=== PATIENT | female | born 1995 | race Caucasian/White ===

== ENCOUNTER 2018-12-13 02:46 | Inpatient (IN) | payer OTHER ==
[2018-12-13] MEDS ORDERED: Nalbuphine 20 MG/ML 1 ML Syringe IVPUSH PRN (03:39)
[2018-12-13] MEDS ORDERED: Sodium Chloride 0.9% 10 ML Syringe FLUSH PRN (03:39)
[2018-12-13] MEDS ORDERED: Oxytocin/Lactated Ringers 10 UNIT/1,000 ML BAG IV SCH ×2 (03:45)
--- NOTE | 2018-12-13 06:49 | PCM.LDHP ---
L&D History of Present Illness - General Date of Service: 12/13/18 Admit Problem/Dx: Patient Status Order with Admit Dx/Problem 12/13/18 03:39 Patient Status [ADT] Routine Admission Diagnosis/Problem Admission Diagnosis/Problem Source of Information: Patient History Limitations: Reports: No Limitations - History of Present Illness Introduction:: Patient is a 23 y/o at 40 4/7 wks who presents in labor. Contractions started late last night. Progressively worse and presented ot hospital about 0300 this AM. No other specific concerns. 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 Para: 0 LMP (Approximate): - Past Surgical History HEENT Surgical History: Reports: Oral Surgery (wisdom tooth extraction) Social & Family History - Family History Family Medical History: Noncontributory - Tobacco Use Smoking Status *Q: Never Smoker Second Hand Smoke Exposure: No - Alcohol Use Alcohol Use History: No - Recreational Drug Use Recreational Drug Use: No H&P Review of Systems - Review of Systems: Review Of Systems: See Below General: Reports: No Symptoms Pulmonary: Reports: No Symptoms Cardiovascular: Reports: No Symptoms Gastrointestinal: Reports: No Symptoms Genitourinary: Reports: No Symptoms Musculoskeletal: Reports: No Symptoms Psychiatric: Reports: No Symptoms L&D Exam - Exam Exam: See Below - Vital Signs Vital Signs: Last Vital Signs Temp 36.1 C 12/13/18 03:01 Pulse 66 12/13/18 03:01 Resp 18 12/13/18 03:01 BP 134/80 12/13/18 03:01 Pulse Ox 98 12/13/18 03:01 Weight: 77.519 kg - OB Specific Contraction Intensity: Moderate to Strong Movement: Active Heart Tones: Present Heart Tones per Min: 135 Heart Rate (FHR) Variability: Moderate (6-25 bmp) Presentation: Vertex - Cruz Score Cruz Score Cervix Position: Midposition Cruz Score Consistency: Soft Cruz Score Effacement: >80% Cruz Score Dilation: 3-4 cm Cruz Score Infant's Station: -1 ,0 Cruz Score Total: 10 - Exam General: Alert, Oriented, Cooperative Lungs: Clear to Auscultation, Normal Respiratory Effort Cardiovascular: Regular Rate, Regular Rhythm GI/Abdominal Exam: Soft, Non-Tender Genitourinary: Normal external exam Back Exam: Normal Inspection Extremities: Normal Inspection Skin: Warm, Dry, Intact - Patient Data Lab Results Last 24 hrs: Laboratory Results - last 24 hr 12/13/18 Range/Units 05:45 WBC 15.31 H (3.98-10.04) K/mm3 RBC 4.63 (3.98-5.22) M/mm3 Hgb 14.4 (11.2-15.7) gm/L Hct 41.6 (34.1-44.9) % MCV 89.8 (79.4-94.8) fl MCH 31.1 (25.6-32.2) pg MCHC 34.6 (32.2-35.5) g/dl RDW Std Deviation 40.7 (36.4-46.3) fL Plt Count 242 (182-369) K/mm3 MPV 10.6 (9.4-12.3) fl Neut % (Auto) 83.7 H (34.0-71.1) % Lymph % (Auto) 10.3 L (19.3-51.7) % [place] % (Auto) 5.2 (4.7-12.5) % Eos % (Auto) 0.4 L (0.7-5.8) Baso % (Auto) 0.1 (0.1-1.2) % Neut # (Auto) 12.81 H (1.56-6.13) K/mm3 Lymph # (Auto) 1.57 (1.18-3.74) K/mm3 [place] # (Auto) 0.80 H (0.24-0.36) K/mm3 Eos # (Auto) 0.06 (0.04-0.36) K/mm3 Baso # (Auto) 0.02 (0.01-0.08) K/mm3 Result Diagrams: 12/13/18 05:45 - Problem List (1) 40 weeks gestation of SNOMED Code(s): 72180096 ICD Code: Z3A.40 - 40 WEEKS GESTATION OF Status: Acute Current Visit: Yes Problem List Initiated/Reviewed/Updated: Yes Orders Last 24hrs: Active Orders 24 hr Category Date Time Status Patient Status [ADT] Routine ADT 12/13/18 03:39 Active Activity as Tolerated [RC] PFP Care 12/13/18 03:39 Active Communication Order [RC] ASDIRECTED Care 12/13/18 03:39 Active Non Stress Test [RC] PER UNIT ROUTINE Care 12/13/18 03:39 Active Notify Provider [RC] PFP Care 12/13/18 03:39 Active Notify Provider [RC] PRN Care 12/13/18 03:39 Active Peripheral IV Care [RC] Q2HR Care 12/13/18 03:40 Active Vital Signs [RC] 03,09,15,21 Care 12/13/18 03:39 Active Regular Diet [DIET] Diet 12/13/18 Breakfast Active RAPID PLASMA REAGIN,RPR [CHEM] Routine Lab 12/13/18 05:45 Received Lactated Ringers [Ringers, Lactated] 1,000 ml Med 12/13/18 03:45 Active IV ASDIRECTED Nalbuphine [Nubain] Med 12/13/18 03:39 Active 10 mg IVPUSH Q2H PRN Oxytocin/Lactated Ringers [Pitocin in LR 10 Units/1,000 Med 12/13/18 03:45 Active ML] 10 unit in 1,000 ml IV .CONTINUOUS Oxytocin/Lactated Ringers [Pitocin in LR 10 Units/1,000 Med 12/13/18 03:45 Active ML] 10 unit in 1,000 ml IV TITRATE Sodium Chloride 0.9% [Saline Flush] Med 12/13/18 03:39 Active 10 ml FLUSH ASDIRECTED PRN Electronic Heart Tones Ext w TOCO [WOMSER] Oth 12/13/18 03:39 Ordered Routine Electronic Heart Tones Internal [WOMSER] Per Unit Oth 12/13/18 03:39 Ordered Routine Peripheral IV Insertion Adult [OM.PC] Routine Oth 12/13/18 03:39 Ordered Resuscitation Status Routine Resus Stat 12/13/18 03:39 Ordered Medication Orders Lactated Ringer's (Ringers, Lactated) 1,000 mls @ 100 mls/hr IV ASDIRECTED LEIDY Oxytocin/Lactated Ringer's (Pitocin In Lr 10 Units/1,000 Ml) 10 unit in 1,000 mls @ 12 mls/hr IV TITRATE LEIDY; Protocol Oxytocin/Lactated Ringer's (Pitocin In Lr 10 Units/1,000 Ml) 10 unit in 1,000 mls @ 500 mls/hr IV .CONTINUOUS LEIDY Nalbuphine HCl (Nubain) 10 mg IVPUSH Q2H PRN PRN Reason: pain Sodium Chloride (Saline Flush) 10 ml FLUSH ASDIRECTED PRN PRN Reason: Keep Vein Open Assessment/Plan Comment:: 23 y/o at 40 4/7 wks who presents in labor * Labs * GBS negative, no need for antibiotics * pain management per patient preference * Anticipate
[2018-12-13] MEDS: Lactated Ringers 1,000 ML IV SCH ×4 (08:55→13:44)
--- NOTE | 2018-12-13 09:03 | PCM.PREANE ---
Preanesthetic Assessment - Procedure Proposed Procedure: YAEL - Anesthesia/Transfusion/Family Hx Anesthesia History: Prior Anesthesia Without Reaction (wisdom teeth extraction with no problems) Family History of Anesthesia Reaction: No Transfusion History: No Prior Transfusion(s) - Review of Systems General: No Symptoms Pulmonary: No Symptoms Cardiovascular: No Symptoms Gastrointestinal: No Symptoms Neurological: No Symptoms Other: Reports: None - Physical Assessment NPO Status Date: 12/13/18 NPO Status Time: 07:00 O2 Sat by Pulse Oximetry: 98 Respiratory Rate: 18 Vital Signs: Last Vital Signs Temp 36.1 C 12/13/18 03:01 Pulse 66 12/13/18 03:01 Resp 18 12/13/18 03:01 BP 134/80 12/13/18 03:01 Pulse Ox 98 12/13/18 03:01 Height: 1.65 m Weight: 77.519 kg ASA Class: 2 Mental Status: Alert & Oriented x3 Airway Class: Mallampati = 1 Dentition: Reports: Normal Dentition Thyro-Mental Finger Breadths: 3 Mouth Opening Finger Breadths: 3 ROM/Head Extension: Full Lungs: Clear to Auscultation, Normal Respiratory Effort Cardiovascular: Regular Rate, Regular Rhythm - Lab Values: Laboratory Last Values WBC 15.31 K/mm3 (3.98-10.04) H 12/13/18 05:45 RBC 4.63 M/mm3 (3.98-5.22) 12/13/18 05:45 Hgb 14.4 gm/L (11.2-15.7) 12/13/18 05:45 Hct 41.6 % (34.1-44.9) 12/13/18 05:45 MCV 89.8 fl (79.4-94.8) 12/13/18 05:45 MCH 31.1 pg (25.6-32.2) 12/13/18 05:45 MCHC 34.6 g/dl (32.2-35.5) 12/13/18 05:45 RDW Std Deviation 40.7 fL (36.4-46.3) 12/13/18 05:45 Plt Count 242 K/mm3 (182-369) 12/13/18 05:45 MPV 10.6 fl (9.4-12.3) 12/13/18 05:45 Neut % (Auto) 83.7 % (34.0-71.1) H 12/13/18 05:45 Lymph % (Auto) 10.3 % (19.3-51.7) L 12/13/18 05:45 [place] % (Auto) 5.2 % (4.7-12.5) 12/13/18 05:45 Eos % (Auto) 0.4 (0.7-5.8) L 12/13/18 05:45 Baso % (Auto) 0.1 % (0.1-1.2) 12/13/18 05:45 Neut # (Auto) 12.81 K/mm3 (1.56-6.13) H 12/13/18 05:45 Lymph # (Auto) 1.57 K/mm3 (1.18-3.74) 12/13/18 05:45 [place] # (Auto) 0.80 K/mm3 (0.24-0.36) H 12/13/18 05:45 Eos # (Auto) 0.06 K/mm3 (0.04-0.36) 12/13/18 05:45 Baso # (Auto) 0.02 K/mm3 (0.01-0.08) 12/13/18 05:45 - Allergies Allergies/Adverse Reactions: Allergies Allergy/AdvReac Type Severity Reaction Status Date / Time Sulfa (Sulfonamide Allergy Other Verified 12/13/18 03:39 Antibiotics) - Blood Blood Available: No Product(s) Available: None - Anesthesia Plan Pre-Op Medication Ordered: None - Acknowledgements Anesthesia Type Planned: Epidural Pt an Appropriate Candidate for the Planned Anesthesia: Yes Alternatives and Risks of Anesthesia Discussed w Pt/Guardian: Yes Pt/Guardian Understands and Agrees with Anesthesia Plan: Yes 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 Smoking Status *Q: Never Smoker Second Hand Smoke Exposure: No Recreational Drug Use History: No - CURRENT (IN HOUSE) MEDS Current Meds: Current Medications Lactated Ringer's (Ringers, Lactated) 1,000 mls @ 100 mls/hr IV ASDIRECTED LEIDY Last Admin: 12/13/18 08:55 Dose: 100 mls/hr Oxytocin/Lactated Ringer's (Pitocin In Lr 10 Units/1,000 Ml) 10 unit in 1,000 mls @ 12 mls/hr IV TITRATE LEIDY; Protocol Oxytocin/Lactated Ringer's (Pitocin In Lr 10 Units/1,000 Ml) 10 unit in 1,000 mls @ 500 mls/hr IV .CONTINUOUS LEIDY Nalbuphine HCl (Nubain) 10 mg IVPUSH Q2H PRN PRN Reason: pain Sodium Chloride (Saline Flush) 10 ml FLUSH ASDIRECTED PRN PRN Reason: Keep Vein Open
[2018-12-13] MEDS ORDERED: ePHEDrine 50 MG/ML SDV IVPUSH PRN (09:04)
[2018-12-13] MEDS ORDERED: fentaNYL 100 MCG/2 ML SDV EPIDUR PRN (09:04)
[2018-12-13] MEDS ORDERED: diphenhydrAMINE 50 MG/ML SDV IVPUSH PRN (09:04)
[2018-12-13] MEDS ORDERED: Ondansetron 4 MG/2 ML SDV IVPUSH PRN (09:04)
[2018-12-13] MEDS ORDERED: fentaNYL/Bupivacaine-NS 2 MCG/ML-0.125%/PF 100 ML Bag EP SCH (09:15)
--- NOTE | 2018-12-13 13:08 | PCM.PNLD ---
Labor Progress Note - VS & Meds Vital Signs: Last Vital Signs Temp 36.1 C 12/13/18 03:01 Pulse 66 12/13/18 03:01 Resp 18 12/13/18 09:02 BP 134/80 12/13/18 03:01 Pulse Ox 98 12/13/18 09:02 Active Medications: Current Medications Diphenhydramine HCl (Benadryl) 25 mg IVPUSH Q6H PRN PRN Reason: Pruritis Ephedrine Sulfate (Ephedrine Sulfate) 5 mg IVPUSH ASDIRECTED PRN PRN Reason: Hypotension Fentanyl (Sublimaze) 100 mcg EPIDUR Q3H PRN PRN Reason: Pain Last Admin: 12/13/18 09:42 Dose: 100 mcg Fentanyl/Bupivacaine HCl (Jjcfbbrk-Epiab-Mi 2 Mcg/Ml-0.125%) 100 ml EP ASDIRECTED LEIDY Last Admin: 12/13/18 09:41 Dose: 100 ml Lactated Ringer's (Ringers, Lactated) 1,000 mls @ 100 mls/hr IV ASDIRECTED LEIDY Last Admin: 12/13/18 10:05 Dose: 100 mls/hr Oxytocin/Lactated Ringer's (Pitocin In Lr 10 Units/1,000 Ml) 10 unit in 1,000 mls @ 12 mls/hr IV TITRATE LEIDY; Protocol Oxytocin/Lactated Ringer's (Pitocin In Lr 10 Units/1,000 Ml) 10 unit in 1,000 mls @ 500 mls/hr IV .CONTINUOUS LEIDY Nalbuphine HCl (Nubain) 10 mg IVPUSH Q2H PRN PRN Reason: pain Ondansetron HCl (Zofran) 4 mg IVPUSH ONETIME PRN PRN Reason: Nausea/Vomiting Sodium Chloride (Saline Flush) 10 ml FLUSH ASDIRECTED PRN PRN Reason: Keep Vein Open - Uterine Contractions Uterine Monitoring Mode: External [place] Contraction Intensity: Moderate to Strong Uterine Resting Tone: Soft - Monitoring Monitor Mode: External Ultrasound Heart Rate (FHR) Baseline: 140 Heart Rate (FHR) Variability: Moderate (6-25 bmp) Accelerations: Present, 15x15 Decelerations: None Strip Review: Category I - Vaginal Exam Dilation (cm): 6 Effacement (Percent): 100 Station: -1 Cervical Position: Anterior - Labor Progress (Free Text) Labor Progress: Doing well. Comfortable with epidural in place. AROM performed with clear fluid. Continue present management
--- NOTE | 2018-12-13 18:02 | PCM.DEL ---
L & D Note - General Info Date of Service: 12/13/18 - Delivery Note Labor: Spontaneous Delivery Outcome: Livebirth Delivery Method: Spontaneous Vaginal Delivery-Single Delivery Mode: Spontaneous Presentation: Right Occiput Anterior (LUIGI) Nuchal Cord: None Anesthesia Type: Epidural Amniotic Fluid Description: Clear Episiotomy Type: None Laceration: 2nd Degree, Perineal Suture type: Vicryl Suture size: 2-0 Placenta: Intact, Spontaneous Cord: 3 Vessels Estimated Blood Loss: 200 [place]: Bulb Syringe, Stimulated, Warmed, [place] Used, Warmer Used Delivery Comments (Free Text/Narrative):: Patient found to be complete and began pushing. With maternal pushing effort head delivered from an LUIGI presentation. No nuchal cord present. With gentle downward traction the shoulders and body delivered. Infant placed on maternal abdomen. Cord clamped and cut. Cord blood obtained. Placenta allowed time to separate and expelled intact. inspection of the perineum showed a 2nd degree laceration repaired with a 2-0 vicryl in the typical fashion - General Info Date of Service: 12/14/18 - Patient Data Vitals - Most Recent: Last Vital Signs Temp 36.1 C 12/13/18 03:01 Pulse 66 12/13/18 03:01 Resp 18 12/13/18 09:02 BP 134/80 12/13/18 03:01 Pulse Ox 98 12/13/18 09:02 Weight - Most Recent: 77.519 kg - Problem List & Annotations (1) 40 weeks gestation of SNOMED Code(s): 00098405 Code(s): Z3A.40 - 40 WEEKS GESTATION OF Status: Acute Current Visit: Yes (2) Vaginal delivery SNOMED Code(s): 597842729 Code(s): O80 - ENCOUNTER FOR FULL-TERM UNCOMPLICATED DELIVERY Status: Acute Current Visit: Yes - Problem List Review Problem List Initiated/Reviewed/Updated: Yes - My Orders Last 24 Hours: My Active Orders 12/13/18 03:39 Patient Status [ADT] Routine Activity as Tolerated [RC] PFP Communication Order [RC] ASDIRECTED Notify Provider [RC] PFP Notify Provider [RC] PRN Vital Signs [RC] 03,09,15,21 Nalbuphine [Nubain] 10 mg IVPUSH Q2H PRN Sodium Chloride 0.9% [Saline Flush] 10 ml FLUSH ASDIRECTED PRN Electronic Heart Tones Ext w TOCO [WOMSER] Routine Electronic Heart Tones Internal [WOMSER] Per Unit Routine Peripheral IV Insertion Adult [OM.PC] Routine Resuscitation Status Routine 12/13/18 03:40 Peripheral IV Care [RC] .PRN 12/13/18 03:45 Lactated Ringers [Ringers, Lactated] 1,000 ml IV ASDIRECTED Oxytocin/Lactated Ringers [Pitocin in LR 10 Units/1,000 ML] 10 unit in 1,000 ml IV .CONTINUOUS Oxytocin/Lactated Ringers [Pitocin in LR 10 Units/1,000 ML] 10 unit in 1,000 ml IV TITRATE 12/13/18 05:45 RAPID PLASMA REAGIN,RPR [CHEM] Routine 12/13/18 17:59 Patient Status Manage Transfer [TRANSFER] Routine 12/13/18 Breakfast Regular Diet [DIET] - Assessment Assessment:: 23 y/o G1 now P1001 PPD#0 from at 40 4/7 wks - Plan Plan:: * Routine cares * Encourage breast feeding * Discharge home in 2 days
[2018-12-13] MEDS ORDERED: Docusate Sodium 100 MG Cap PO PRN (18:10)
[2018-12-13] MEDS ORDERED: Witch Hazel Medicated Pads 100/Jar TOP PRN (18:10)
[2018-12-13] MEDS ORDERED: Lanolin 100% Cream 7 GM Tube TOP PRN (18:10)
[2018-12-13] MEDS ORDERED: Benzocaine/Menthol 20%-0.5% Spray 56 GM Canister TOP PRN (18:10)
[2018-12-13] MEDS ORDERED: Acetaminophen 325 MG Tab PO PRN (18:10)
[2018-12-13] MEDS: Ibuprofen 600 MG Tab PO PRN (19:29)
[2018-12-13] MEDS ORDERED: Bupivacaine 0.25% 10 ML SDV ONE (22:00)
[2018-12-13] MEDS ORDERED: Lidocaine 1.5% with EPINEPHrine 1:200,000 5 ML Amp ONE (22:00)
--- NOTE | 2018-12-14 06:48 | PCM.PNPP ---
- General Info Date of Service: 12/14/18 Functional Status: Reports: Pain Controlled, Tolerating Diet, Ambulating, Urinating - Review of Systems General: Reports: No Symptoms Pulmonary: Reports: No Symptoms Cardiovascular: Reports: No Symptoms Gastrointestinal: Reports: No Symptoms Genitourinary: Reports: No Symptoms Musculoskeletal: Reports: No Symptoms Neurological: Reports: No Symptoms - Patient Data Vital Signs - Most Recent: Last Vital Signs Temp 36.8 C 12/14/18 03:14 Pulse 60 12/14/18 03:14 Resp 17 12/14/18 03:14 BP 117/79 12/14/18 03:14 Pulse Ox 98 12/14/18 03:14 Weight - Most Recent: 77.519 kg I&O - Last 24 Hours: Intake & Output 12/13/18 12/13/18 12/14/18 14:59 22:59 06:59 Intake Total 3000 5975 Output Total 1000 Balance 2000 5975 Lab Results - Last 24 Hours: Laboratory Results - last 24 hr 12/13/18 Range/Units 05:45 RPR Non-reactive (NONREACTIVE) Med Orders - Current: Current Medications Acetaminophen (Tylenol) 650 mg PO Q4H PRN PRN Reason: mild pain or fever Benzocaine/Menthol (Dermoplast Pain Relief [place]) 0 gm TOP ASDIRECTED PRN PRN Reason: Perineal Comfort Measure Last Admin: 12/13/18 19:29 Dose: 1 applic Docusate Sodium (Colace) 100 mg PO BID PRN PRN Reason: Constipation Emollient Ointment (Lansinoh Hpa) 0 gm TOP ASDIRECTED PRN PRN Reason: Sore Nipples Ibuprofen (Motrin) 600 mg PO Q6H PRN PRN Reason: Mild pain or fever Last Admin: 12/13/18 19:29 Dose: 600 mg Witch Mitzy (Tucks) 1 pad TOP ASDIRECTED PRN PRN Reason: Hemorrhoid pain Last Admin: 12/13/18 19:29 Dose: 1 tub Discontinued Medications Diphenhydramine HCl (Benadryl) 25 mg IVPUSH Q6H PRN PRN Reason: Pruritis Ephedrine Sulfate (Ephedrine Sulfate) 5 mg IVPUSH ASDIRECTED PRN PRN Reason: Hypotension Fentanyl (Sublimaze) 100 mcg EPIDUR Q3H PRN PRN Reason: Pain Last Admin: 12/13/18 09:42 Dose: 100 mcg Fentanyl/Bupivacaine HCl (Arlikzkp-Rfvdc-Vy 2 Mcg/Ml-0.125%) 100 ml EP ASDIRECTED LEIDY Last Admin: 12/13/18 09:41 Dose: 100 ml Lactated Ringer's (Ringers, Lactated) 1,000 mls @ 100 mls/hr IV ASDIRECTED LEIDY Last Admin: 12/13/18 13:44 Dose: 100 mls/hr Oxytocin/Lactated Ringer's (Pitocin In Lr 10 Units/1,000 Ml) 10 unit in 1,000 mls @ 12 mls/hr IV TITRATE LEIDY; Protocol Oxytocin/Lactated Ringer's (Pitocin In Lr 10 Units/1,000 Ml) 10 unit in 1,000 mls @ 500 mls/hr IV .CONTINUOUS LEIDY Last Admin: 12/13/18 17:45 Dose: 500 mls/hr Nalbuphine HCl (Nubain) 10 mg IVPUSH Q2H PRN PRN Reason: pain Ondansetron HCl (Zofran) 4 mg IVPUSH ONETIME PRN PRN Reason: Nausea/Vomiting Sodium Chloride (Saline Flush) 10 ml FLUSH ASDIRECTED PRN PRN Reason: Keep Vein Open - Infant Interaction Disposition, : [place] in Room with Family Infant Interaction: Holding Infant Infant Feeding: Attempted ; Nursed Fair/Poor Support Person: - Recovery Exam Fundal Tone: Firm Fundal Level: 1 Fingerbreadths Below Umbilicus Fundal Placement: Midline Lochia Amount: Small Lochia Color: Rubra/Red Perineum Description: Other (see below) Other Perinuem Description: second degree with repair Episiotomy/Laceration: Approximated Bladder Status: Voiding Urinary Elimination: Voided - Exam General: Alert, Oriented, Cooperative GI/Abdominal Exam: Soft, Non-Tender Extremities: Normal Inspection Skin: Warm, Dry, Intact - Problem List & Annotations (1) 40 weeks gestation of SNOMED Code(s): 38320918 Code(s): Z3A.40 - 40 WEEKS GESTATION OF Status: Acute Current Visit: Yes (2) Vaginal delivery SNOMED Code(s): 952941196 Code(s): O80 - ENCOUNTER FOR FULL-TERM UNCOMPLICATED DELIVERY Status: Acute Current Visit: Yes - Problem List Review Problem List Initiated/Reviewed/Updated: Yes - My Orders Last 24 Hours: My Active Orders 12/13/18 18:10 Activity as Tolerated [RC] PER UNIT ROUTINE Vital Signs [RC] 03,,15,21 Acetaminophen [Tylenol] 650 mg PO Q4H PRN Benzocaine/Menthol [Dermoplast Pain Relief [place]] See Dose Instructions TOP ASDIRECTED PRN Docusate Sodium [Colace] 100 mg PO BID PRN Ibuprofen [Motrin] 600 mg PO Q6H PRN Lanolin [Lansinoh HPA] See Dose Instructions TOP ASDIRECTED PRN Witch Mitzy [Tucks] 1 pad TOP ASDIRECTED PRN Assess Lochia [WOMSER] Per Unit Routine Assess Uterine Involution [WOMSER] Per Unit Routine Breast Pump [WOMSER] Per Unit Routine Heat Therapy [OM.PC] PRN Ice Therapy [OM.PC] Per Unit Routine Perineal Care [OM.PC] Per Unit Routine Peripheral IV Discontinue [OM.PC] Routine Sitz Bath [OM.PC] Per Unit Routine 12/13/18 Dinner Regular Diet [DIET] 12/14/18 18:10 Heat Therapy [OM.PC] PRN - Assessment Assessment:: 23 y/o G1 now P1001 PPD#1 from at 40 4/7 wks - Plan Plan:: * Routine cares * Encourage breast feeding * Discharge home tomorrow
[2018-12-14] MEDS: Ibuprofen 600 MG Tab PO PRN ×2 (08:56→15:46)
--- NOTE | 2018-12-14 09:08 | PCM48HPAN ---
Post Anesthesia Note - EVALUATION WITHIN 48HRS OF ANESTHETIC Vital Signs in Normal Range: Yes Patient Participated in Evaluation: Yes Respiratory Function Stable: Yes Airway Patent: Yes Cardiovascular Function Stable: Yes Hydration Status Stable: Yes Pain Control Satisfactory: Yes Nausea and Vomiting Control Satisfactory: Yes Mental Status Recovered: Yes - COMMENTS/OBSERVATIONS Free Text/Narrative:: No complications related to epidural noted. No further questions at this time.
[2018-12-15] MEDS: Ibuprofen 600 MG Tab PO PRN (02:25)
--- NOTE | 2018-12-15 07:11 | PCM.PNPP ---
- General Info Date of Service: 12/15/18 Functional Status: Reports: Pain Controlled, Tolerating Diet, Ambulating, Urinating - Review of Systems General: Reports: No Symptoms Pulmonary: Reports: No Symptoms Cardiovascular: Reports: No Symptoms Gastrointestinal: Reports: No Symptoms Genitourinary: Reports: No Symptoms Musculoskeletal: Reports: No Symptoms Neurological: Reports: No Symptoms - Patient Data Vital Signs - Most Recent: Last Vital Signs Temp 36.7 C 12/15/18 02:26 Pulse 70 12/15/18 02:26 Resp 17 12/15/18 02:26 BP 128/81 12/15/18 02:26 Pulse Ox 98 12/15/18 02:26 Weight - Most Recent: 77.519 kg Med Orders - Current: Current Medications Acetaminophen (Tylenol) 650 mg PO Q4H PRN PRN Reason: mild pain or fever Benzocaine/Menthol (Dermoplast Pain Relief [place]) 0 gm TOP ASDIRECTED PRN PRN Reason: Perineal Comfort Measure Last Admin: 12/13/18 19:29 Dose: 1 applic Docusate Sodium (Colace) 100 mg PO BID PRN PRN Reason: Constipation Emollient Ointment (Lansinoh Hpa) 0 gm TOP ASDIRECTED PRN PRN Reason: Sore Nipples Ibuprofen (Motrin) 600 mg PO Q6H PRN PRN Reason: Mild pain or fever Last Admin: 12/15/18 02:25 Dose: 600 mg Witch Mitzy (Tucks) 1 pad TOP ASDIRECTED PRN PRN Reason: Hemorrhoid pain Last Admin: 12/13/18 19:29 Dose: 1 tub Discontinued Medications Diphenhydramine HCl (Benadryl) 25 mg IVPUSH Q6H PRN PRN Reason: Pruritis Ephedrine Sulfate (Ephedrine Sulfate) 5 mg IVPUSH ASDIRECTED PRN PRN Reason: Hypotension Fentanyl (Sublimaze) 100 mcg EPIDUR Q3H PRN PRN Reason: Pain Last Admin: 12/13/18 09:42 Dose: 100 mcg Fentanyl/Bupivacaine HCl (Aiexamvi-Jbdjn-Pc 2 Mcg/Ml-0.125%) 100 ml EP ASDIRECTED LEIDY Last Admin: 12/13/18 09:41 Dose: 100 ml Lactated Ringer's (Ringers, Lactated) 1,000 mls @ 100 mls/hr IV ASDIRECTED LEIDY Last Admin: 12/13/18 13:44 Dose: 100 mls/hr Oxytocin/Lactated Ringer's (Pitocin In Lr 10 Units/1,000 Ml) 10 unit in 1,000 mls @ 12 mls/hr IV TITRATE LEIDY; Protocol Oxytocin/Lactated Ringer's (Pitocin In Lr 10 Units/1,000 Ml) 10 unit in 1,000 mls @ 500 mls/hr IV .CONTINUOUS LEIDY Last Admin: 12/13/18 17:45 Dose: 500 mls/hr Nalbuphine HCl (Nubain) 10 mg IVPUSH Q2H PRN PRN Reason: pain Ondansetron HCl (Zofran) 4 mg IVPUSH ONETIME PRN PRN Reason: Nausea/Vomiting Sodium Chloride (Saline Flush) 10 ml FLUSH ASDIRECTED PRN PRN Reason: Keep Vein Open - Interaction Infant Disposition, : in Room with Family Infant Interaction: Holding Infant Infant Feeding: Attempted ; Nursed Fair/Poor Support Person: - Recovery Exam Fundal Tone: Firm Fundal Level: 1 Fingerbreadths Below Umbilicus Fundal Placement: Midline Lochia Amount: Small Lochia Color: Rubra/Red Perineum Description: Other (see below) Other Perinuem Description: second degree with repair Episiotomy/Laceration: Approximated Bladder Status: Voiding Urinary Elimination: Voided - Exam General: Alert, Oriented, Cooperative GI/Abdominal Exam: Soft, Non-Tender Extremities: Normal Inspection Skin: Warm, Dry, Intact - Problem List & Annotations (1) 40 weeks gestation of SNOMED Code(s): 15078147 Code(s): Z3A.40 - 40 WEEKS GESTATION OF Status: Acute (2) Vaginal delivery SNOMED Code(s): 600655777 Code(s): O80 - ENCOUNTER FOR FULL-TERM UNCOMPLICATED DELIVERY Status: Acute - Problem List Review Problem List Initiated/Reviewed/Updated: Yes - My Orders Last 24 Hours: My Active Orders 12/14/18 18:10 Heat Therapy [OM.PC] PRN - Assessment Assessment:: 23 y/o G1 now P1001 PPD#2 from at 40 4/7 wks - Plan Plan:: * Routine cares * Encourage breast feeding * Discharge home today
--- NOTE | 2018-12-15 07:12 | PCM.DCSUM1 ---
Discharge Summary - Discharge Data Discharge Date: 12/15/18 Discharge Disposition: Home, Self-Care 01 Condition: Good - Discharge Diagnosis/Problem(s) (1) 40 weeks gestation of SNOMED Code(s): 14784841 ICD Code: Z3A.40 - 40 WEEKS GESTATION OF Status: Acute (2) Vaginal delivery SNOMED Code(s): 581824704 ICD Code: O80 - ENCOUNTER FOR FULL-TERM UNCOMPLICATED DELIVERY Status: Acute - Patient Summary/Data Complications: None Consults: None Recommended Follow-up Testing/Procedures: Follow-up in 3 weeks for check Hospital Course: Patient is a 23-year-old who presented at 40-4/7 weeks gestation in labor. She progressed without need for augmentation. Reached complete dilation and underwent an uncomplicated vaginal delivery. See delivery note for full details. she did well and was discharged home on day #2 - Patient Instructions Diet: Regular Diet as Tolerated Activity: As Tolerated Activity, Other: Pelvic Rest for 6 weeks Driving: May Drive Today Showering/Bathing: May Shower Showering/Bathing, Other: May bathe Notify Provider of: Fever, Increased Pain, Swelling and Redness, Drainage, Nausea and/or Vomiting - Discharge Plan *PRESCRIPTION DRUG MONITORING PROGRAM REVIEWED*: Not Applicable *COPY OF PRESCRIPTION DRUG MONITORING REPORT IN PATIENT HELENA: Not Applicable Home Medications: Home Meds Docusate Sodium [Colace] 100 mg PO BID PRN cap 12/14/18 [Rx] Ibuprofen [Motrin] 600 mg PO Q6H PRN tablet 12/14/18 [Rx] Patient Handouts: Home Care Instructions for Mom, Tips for a Good Latch Referrals: Carine Conroy MD [Primary Care Provider] - (3 weeks for check ) - Discharge Summary/Plan Comment DC Time >30 min.: No - Patient Data Vitals - Most Recent: Last Vital Signs Temp 36.7 C 12/15/18 02:26 Pulse 70 12/15/18 02:26 Resp 17 12/15/18 02:26 BP 128/81 12/15/18 02:26 Pulse Ox 98 12/15/18 02:26 Weight - Most Recent: 77.519 kg Med Orders - Current: Current Medications Acetaminophen (Tylenol) 650 mg PO Q4H PRN PRN Reason: mild pain or fever Benzocaine/Menthol (Dermoplast Pain Relief [place]) 0 gm TOP ASDIRECTED PRN PRN Reason: Perineal Comfort Measure Last Admin: 12/13/18 19:29 Dose: 1 applic Docusate Sodium (Colace) 100 mg PO BID PRN PRN Reason: Constipation Emollient Ointment (Lansinoh Hpa) 0 gm TOP ASDIRECTED PRN PRN Reason: Sore Nipples Ibuprofen (Motrin) 600 mg PO Q6H PRN PRN Reason: Mild pain or fever Last Admin: 12/15/18 02:25 Dose: 600 mg Witch Mitzy (Tucks) 1 pad TOP ASDIRECTED PRN PRN Reason: Hemorrhoid pain Last Admin: 12/13/18 19:29 Dose: 1 tub Discontinued Medications Diphenhydramine HCl (Benadryl) 25 mg IVPUSH Q6H PRN PRN Reason: Pruritis Ephedrine Sulfate (Ephedrine Sulfate) 5 mg IVPUSH ASDIRECTED PRN PRN Reason: Hypotension Fentanyl (Sublimaze) 100 mcg EPIDUR Q3H PRN PRN Reason: Pain Last Admin: 12/13/18 09:42 Dose: 100 mcg Fentanyl/Bupivacaine HCl (Egfzgttl-Ayvur-Ct 2 Mcg/Ml-0.125%) 100 ml EP ASDIRECTED LEIDY Last Admin: 12/13/18 09:41 Dose: 100 ml Lactated Ringer's (Ringers, Lactated) 1,000 mls @ 100 mls/hr IV ASDIRECTED LEIDY Last Admin: 12/13/18 13:44 Dose: 100 mls/hr Oxytocin/Lactated Ringer's (Pitocin In Lr 10 Units/1,000 Ml) 10 unit in 1,000 mls @ 12 mls/hr IV TITRATE LEIDY; Protocol Oxytocin/Lactated Ringer's (Pitocin In Lr 10 Units/1,000 Ml) 10 unit in 1,000 mls @ 500 mls/hr IV .CONTINUOUS LEIDY Last Admin: 12/13/18 17:45 Dose: 500 mls/hr Nalbuphine HCl (Nubain) 10 mg IVPUSH Q2H PRN PRN Reason: pain Ondansetron HCl (Zofran) 4 mg IVPUSH ONETIME PRN PRN Reason: Nausea/Vomiting Sodium Chloride (Saline Flush) 10 ml FLUSH ASDIRECTED PRN PRN Reason: Keep Vein Open
== END 2018-12-15 10:15 | disposition home or self-care (01) | DRG 807 ==
LOC: JD.OBCHECK 02:46 → JD.OB 02:46 → JD.OBCHECK 03:38 → JD.OB 03:39 → OBSVTOIN 17:41 → JD.OB 17:42
PROVIDERS: ADMIT Obstetrics & Gynecology; ATTEND Obstetrics & Gynecology
PROC: 0KQM0ZZ Repair Perineum Muscle, Open Approach (ICD-10-PCS; principal; 2018-12-13)
PROC: 10E0XZZ Delivery of Products of Conception, External Approach (ICD-10-PCS; principal; 2018-12-13)
PROC: 6A550ZT Pheresis of Cord Blood Stem Cells, Single (ICD-10-PCS; principal; 2018-12-13)
PROC: 10907ZC Drainage of Amniotic Fluid, Therapeutic from Products of Conception, Via Natural or Artificial Opening (ICD-10-PCS; principal; 2018-12-13)
PROC: 3E0R3BZ Introduction of Anesthetic Agent into Spinal Canal, Percutaneous Approach (ICD-10-PCS; 2018-12-13)
PROC: 00HU33Z Insertion of Infusion Device into Spinal Canal, Percutaneous Approach (ICD-10-PCS; 2018-12-13)
DX: O48.0 Post-term pregnancy (principal); Z37.0 Single live birth; Z3A.40 40 weeks gestation of pregnancy; O70.1 Second degree perineal laceration during delivery; Z88.2 Allergy status to sulfonamides
CPT/HCPCS: 36415; 51702; 59025; 59409; 85025; 86592; A9270-GY; J2590; J3010; J3490; J7120

== ENCOUNTER 2019-02-05 22:24 | Emergency (ER) | payer OTHER ==
--- NOTE | 2019-02-05 22:45 | EDM.PDOC ---
ED HPI GENERAL MEDICAL PROBLEM - General Chief Complaint: Chest Pain Stated Complaint: TIGHTNESS IN CHEST,DIZZY,STOMACH ACHE Time Seen by Provider: 02/05/19 22:45 Source of Information: Reports: Patient History Limitations: Reports: No Limitations - History of Present Illness INITIAL COMMENTS - FREE TEXT/NARRATIVE: 23-year-old female attends the ED just generally not feeling well most of the day. She's had some numbness and tingling in the ulnar nerve distribution of her left upper extremity. She has pain pressure discomfort in the pit of her stomach that does not radiate through to her back. Intermittent nausea without any vomiting. Poor appetite. Fever or chills. Bowel function is normal. Denies any significant heartburn. She had quite a bit of GERD during her . She delivered vaginally 7 weeks ago. No previous abdominal surgery. No excessive burping or belching. No alcohol use recently. Onset: Today Onset Date: 02/05/19 Onset Time: 12:00 Duration: Hour(s):, Intermittent, Waxing/Waning Location: Reports: Chest (Pit of stomach lower retrosternal chest pressure discomfort.) Quality: Reports: Ache Severity: Mild Improves with: Reports: None Worsens with: Reports: None Context: Denies: Activity, Exercise, Lifting, Sick Contact, Trauma, Other Associated Symptoms: Reports: Other (Intermittent nausea without vomiting. Some paresthesias in the left upper extremity and the ulnar nerve root distribution of her hand.). Denies: Chest Pain, cough w sputum, Headaches, Loss of Appetite , Rash, Seizure (Intermittent nausea without vomiting), Shortness of Breath Treatments PLASTIC CUTTER: Reports: Other (see below) (None.) - Related Data Allergies Allergy/AdvReac Type Severity Reaction Status Date / Time Sulfa (Sulfonamide Allergy Other Verified 02/05/19 22:41 Antibiotics) Home Meds: Home Meds Hyoscyamine Sulfate [Levsin-Sl] 0.125 mg SL ASDIRECTED #6 tab.subl 02/05/19 [Rx] Past Medical History : 1 Para: 1 - Past Surgical History HEENT Surgical History: Reports: Oral Surgery (wisdom tooth extraction) Social & Family History - Family History Family Medical History: Noncontributory - Living Situation & Occupation Living situation: Reports: Occupation: Employed ED ROS GENERAL - Review of Systems Review Of Systems: See Below Constitutional: Reports: Fatigue, Decreased Appetite. Denies: Fever, Chills, Malaise, Weakness HEENT: Reports: No Symptoms Respiratory: Denies: Shortness of Breath, Wheezing, Pleuritic Chest Pain, Cough , Sputum Cardiovascular: Reports: Chest Pain (Lower retrosternal. Of the stomach pressure discomfort). Denies: Blood Pressure Problem, Claudication, Dyspnea on Exertion, Edema, Lightheadedness, Orthopnea Endocrine: Reports: No Symptoms GI/Abdominal: Reports: Abdominal Pain (Pressure discomfort. Of the stomach.), Decreased Appetite. Denies: Anorexia, Black Stool, Bloody Stool, Constipation, Diarrhea, Difficulty Swallowing, Distension, Flatus, Hematemesis, Hematochezia : Reports: No Symptoms Musculoskeletal: Reports: No Symptoms Skin: Reports: No Symptoms Neurological: Reports: Other Psychiatric: Reports: No Symptoms (Paresthesias in the ulnar nerve root distribution left hand) Hematologic/Lymphatic: Reports: No Symptoms Immunologic: Reports: No Symptoms ED EXAM, GENERAL - Physical Exam Exam: See Below Exam Limited By: No Limitations General Appearance: Alert, WD/WN, Anxious, Mild Distress, Other (Mildly anxious. Vital signs are normal.) Neck: Normal Inspection, Supple, Non-Tender, Full Range of Motion. No: Lymphadenopathy (L), Lymphadenopathy (R) Respiratory/Chest: Lungs Clear (Mild tachypnea), Normal Breath Sounds, No Accessory Muscle Use, Chest Non-Tender, Respiratory Distress Cardiovascular: Normal Peripheral Pulses, Regular Rate, Rhythm, No Edema, No Gallop, No Murmur, No Rub Peripheral Pulses: 3+: Posterior Tibial (L), Posterior Tibial (R), Dorsalis Pedis (L), Dorsalis Pedis (R) GI/Abdominal: Normal Bowel Sounds, Soft, Tender (Tenderness in the epigastrium.) . No: Guarding ( No guarding or rebound), Rigid, Rebound Back Exam: Normal Inspection, Full Range of Motion. No: CVA Tenderness (L), CVA Tenderness (R) Extremities: Normal Inspection, Normal Range of Motion, Non-Tender Neurological: Alert, Oriented, CN II-XII Intact, Normal Cognition, Normal Gait Psychiatric: Normal Affect, Normal Mood Skin Exam: Warm, Dry, Intact, Normal Color, No Rash EKG INTERPRETATION EKG Date: 02/05/19 Time: 23:00 Rhythm: NSR Rate (Beats/Min): 61 [place]: Normal P-Wave: Present QRS: Normal ST-T: Normal QT: Normal EKG Interpretation Comments: Normal ECG Course - Vital Signs Last Recorded V/S: Last Vital Signs Temp 36.4 C 02/05/19 22:38 Pulse 70 02/05/19 22:38 Resp 20 02/05/19 22:38 BP 126/83 02/05/19 22:38 Pulse Ox 99 02/05/19 22:38 - Orders/Labs/Meds Orders: Active Orders 24 hr Category Date Time Status EKG Documentation Completion [RC] STAT Care 02/05/19 22:53 Active Chest 1V Frontal [CR] Stat Exams 02/05/19 22:53 Taken Meds: Medications Discontinued Medications Generic Name Dose Route Start Last Admin Trade Name Freq PRN Reason Stop Dose Admin Dicyclomine HCl 20 mg 02/05/19 23:19 02/05/19 23:23 Bentyl PO 02/05/19 23:20 20 mg ONETIME ONE Administration Hyoscyamine 0.125 mg 02/05/19 22:52 02/05/19 22:56 Hyomax-Sl SL 02/05/19 22:53 0.125 mg ONETIME ONE Administration Hyoscyamine 0.125 mg 02/05/19 23:02 Hyomax-Sl SL 02/05/19 23:03 ONETIME ONE - Radiology Interpretation Free Text/Narrative:: 23-year-old female presents to the ED for evaluation of persistent epigastric pressure discomfort since about noon and today. Transient nausea. No vomiting. Decreased appetite today. No associated fever or chills. No cough or sputum production. Pressure pain discomfort does not radiate through to the back. She hasn't ate much today and therefore can't comment that eating makes the pain worse. No recent alcohol use. No previous abdominal surgery. Examination reveals tenderness in the epigastrium only with no signs of gallbladder disease. Plan 1 view chest x-ray ECG. Will give Levsin 0.125 out of sublingually now and repeat second tablet and 8 minutes time. - Re-Assessments/Exams Free Text/Narrative Re-Assessment/Exam: 02/05/19 23:08 1 view portable chest x-ray is completely normal. Lungs are clear normal cardiac silhouette. ECG is normal sinus rhythm at 61/m. 02/05/19 23:20 patient states that the pressure discomfort dissipated almost within 3 or 4 minutes of taking the first tablet of Levsin. Second tablet was therefore withheld. There is hiatal hernia in origin. Plan I'm going to give her Bentyl 20 by mouth to make sure she makes it through the night okay without reoccurrence. Script written for 6 tablets of Levsin 0.125 mg sublingual to have on hand as this is going to happen again. Eyes about things to avoid such as eating later in the day going to bed with a full stomach and soda pop etc. Departure - Departure Time of Disposition: 23:21 Disposition: Home, Self-Care 01 Condition: Fair Clinical Impression: Hiatal hernia Abdominal pain Qualifiers: Abdominal location: epigastric Qualified Code(s): R10.13 - Epigastric pain Prescriptions: Hyoscyamine Sulfate [Levsin-Sl] 0.125 mg SL ASDIRECTED #6 tab.subl Referrals: PCP,None [Primary Care Provider] - Forms: ED Department Discharge Additional Instructions: Evaluation in the emergency department tonight in regards to pressure discomfort in the pit of your stomach or epigastrium rating up into the lower chest. This is been present off and on for most of the day. Associated intermittent nausea. Examination revealed normal lungs and heart. ECG and chest x-ray were also normal. Examination revealed tenderness mostly in the epigastrium of the stomach with no signs of gallbladder disease. Suspect that you have a small hiatal hernia which means the stomach is trying to herniated up through the diaphragm into the chest. This often starts to occur in women particularly after having a baby. You're treated with Levsin 0.125 mg tablet under the tongue and it provided satisfactory relief of the discomfort. This helps distinguish that it is most likely hiatal hernia or lower esophageal spasm causing your pain. You're given Bentyl 20 mg by mouth to ensure that she does not recur overnight while you're sleeping. As we discussed going to bed with a relatively empty stomach is important to prevent recurrence of hiatal hernia during the night. Avoiding soda pop particularly in the evenings. I did write a prescription for Levsin 0.125 mg tablets 6 that you can use in the future for similar type discomfort. If one tablet is not effectual in 10 minutes she may repeat a second tablet pain. Taking 2 tablets usually is not beneficial. Follow-up with personal care physician if any further problems continue - My Orders Last 24 Hours: My Active Orders 02/05/19 22:53 EKG Documentation Completion [RC] STAT Chest 1V Frontal [CR] Stat - Assessment/Plan Last 24 Hours: My Active Orders 02/05/19 22:53 EKG Documentation Completion [RC] STAT Chest 1V Frontal [CR] Stat
[2019-02-05] MEDS ORDERED: Hyoscyamine 0.125 MG Tab.SL SL ONE ×2 (22:52→23:02)
[2019-02-05] MEDS ORDERED: Dicyclomine 10 MG Cap PO ONE (23:19)
--- NOTE | 2019-02-06 06:55 | CR ---
Chest: Portable view of the chest was obtained. Comparison: No prior chest x-ray. Heart size and mediastinum are within normal limits. Lungs are clear. Bony structures are grossly intact. Impression: 1. Nothing acute is seen on portable chest x-ray. Diagnostic code #1
== END 2019-02-05 23:35 | disposition home or self-care (01) ==
LOC: JD.ED 22:24
DX: K44.9 Diaphragmatic hernia without obstruction or gangrene (principal); Z88.2 Allergy status to sulfonamides
CPT/HCPCS: 71045; 93005; 99285; A9270; 93010; 99284

== ENCOUNTER 2022-05-16 18:13 | Inpatient (IN) | payer OTHER ==
[~2022-05-16 18:13] MED LIST: Bupivacaine 0.25% 10 ML SDV ONE
[2022-05-16] MEDS ORDERED: Acetaminophen 325 MG Tab PO PRN ×2 (18:50→23:25)
[2022-05-16] MEDS ORDERED: Ondansetron 4 MG/2 ML SDV IVPUSH PRN (18:50)
[2022-05-16] MEDS ORDERED: Lidocaine 1% 50 ML MDV INJECT ONE (18:50)
[2022-05-16] MEDS ORDERED: Sodium Chloride 0.9% 10 ML Syringe FLUSH PRN (18:50)
[2022-05-16] MEDS ORDERED: Nalbuphine HCl 10 MG/ 1ML Amp IVPUSH PRN (18:50)
[2022-05-16] MEDS ORDERED: Oxytocin/Lactated Ringers 10 UNIT/1,000 ML BAG IV SCH ×3 (19:00→23:25)
[2022-05-16] MEDS: Lactated Ringers 1,000 ML IV SCH ×3 (19:06→20:48)
[2022-05-16] MEDS ORDERED: ePHEDrine 50 MG/ML SDV IVPUSH PRN (19:43)
[2022-05-16] MEDS ORDERED: fentaNYL 100 MCG/2 ML SDV EPIDUR PRN (19:43)
[2022-05-16] MEDS ORDERED: Bupivacaine/fentaNYL/NS 100 ML Bag EPIDUR PRN (19:43)
[2022-05-16] MEDS ORDERED: diphenhydrAMINE 50 MG/ML SDV IVPUSH PRN (19:43)
[2022-05-16] MEDS ORDERED: Sodium Chloride 0.9% 10 ML Syringe FLUSH SCH (21:00)
[2022-05-16] MEDS ORDERED: Magnesium Hydroxide 400 MG/5 ML Susp 30 ML Cup PO PRN (23:25)
[2022-05-16] MEDS ORDERED: Witch Hazel Medicated Pads 40/Jar TOP PRN (23:25)
[2022-05-16] MEDS ORDERED: Benzocaine/Menthol 20%-0.5% Spray 78 GM Cannister TOP PRN (23:25)
[2022-05-16] MEDS ORDERED: Hydrocortisone Acetate 25 MG Supp RECTAL PRN (23:25)
[2022-05-16] MEDS: Ibuprofen 600 MG Tab PO PRN (23:42)
[2022-05-16] MEDS: Docusate Sodium 100 MG Cap PO PRN (23:42)
[2022-05-17] MEDS ORDERED: Prenatal Multivitamin with Calcium/Folic Acid/Iron Tab PO SCH (09:00)
[2022-05-17] MEDS: Ibuprofen 600 MG Tab PO PRN ×2 (09:04→20:40)
[2022-05-17] MEDS: Docusate Sodium 100 MG Cap PO PRN (20:41)
[2022-05-18] MEDS: Ibuprofen 600 MG Tab PO PRN (05:02)
== END 2022-05-18 08:50 | disposition home or self-care (01) | DRG 807 ==
LOC: JD.OBCHECK 18:13 → JD.OB 18:30 → JD.OBCHECK 18:49 → JD.OB 18:50 → OBSVTOIN 21:34 → JD.OB 21:35
PROVIDERS: ADMIT Obstetrics & Gynecology; ATTEND Obstetrics & Gynecology
PROC: 10E0XZZ Delivery of Products of Conception, External Approach (ICD-10-PCS; principal; 2022-05-16)
PROC: 0KQM0ZZ Repair Perineum Muscle, Open Approach (ICD-10-PCS; 2022-05-16)
PROC: 3E0R3BZ Introduction of Anesthetic Agent into Spinal Canal, Percutaneous Approach (ICD-10-PCS; 2022-05-16)
PROC: 10907ZC Drainage of Amniotic Fluid, Therapeutic from Products of Conception, Via Natural or Artificial Opening (ICD-10-PCS; 2022-05-16)
DX: O70.1 Second degree perineal laceration during delivery (principal); Z37.0 Single live birth; Z3A.40 40 weeks gestation of pregnancy
CPT/HCPCS: 36415; 51702; 59025; 59409; 85025; 86592; 86850; 86900; 86901; A9270-GY; J2590; J3010; J3490; J7120

== ENCOUNTER 2022-06-16 16:37 | Emergency (ER) | payer OTHER | END 2022-06-16 18:00 | disposition home or self-care (01) | LOC: JD.ED 16:37 | DX: R22.31 Localized swelling, mass and lump, right upper limb (principal); Z88.2 Allergy status to sulfonamides | CPT/HCPCS: 99283 ==